=== PATIENT | female | born 1995 | race Caucasian/White ===

== ENCOUNTER 2018-03-05 08:59 | Emergency (ER) | payer OTHER ==
[2018-03-05 09:07] VITALS: BP 104/62
--- NOTE | 2018-03-05 09:22 | EDPHY ---
H & P Time Seen by Provider: 03/05/18 09:02 HPI/ROS: 22 yo F cut her finger while cutting a bagel at work today. 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 It bled alot but has slowed down since that time. No hx of bleeding problems, not on blood thinners. Review of systems As per HPI General no fever no chills no weakness HEENT no eye pain no eye discharge. No eye redness, no sore throat Respiratory no cough, no shortness of breath Cardiac no chest pain, no peripheral edema GI no abdominal pain, no diarrhea, no constipation, no nausea, no vomiting no flank pain, no hematuria, no dysuria Musculoskeletal no myalgias, no joint pain Heme no easy bruising, no easy bleeding Endo no polyuria, no polydipsia Skin no rashes, no pruritus Neuro no syncope, no dizziness, no headaches Past Medical/Surgical History: Non contributory Social History: Works at a preschool Smoking Status: Never smoked Physical Exam: 22-year-old female alert and oriented no acute distress nontoxic appearance Vital signs stable Atraumatic normocephalic Respiratory distress Lungs clear to auscultation Heart regular rate and rhythm hand left hand, left thumb with superficial laceration to distal tip approx 1 cm no gaping, bleeding controlled with pressure Constitutional: Initial Vital Signs Temperature (C) 36.3 C 03/05/18 09:05 Heart Rate 73 03/05/18 09:05 Respiratory Rate 18 03/05/18 09:05 Blood Pressure 104/62 03/05/18 09:05 O2 Sat (%) 99 03/05/18 09:05 O2 Delivery Mode Room Air Allergies/Adverse Reactions: No Known Allergies Allergy (Unverified 03/05/18 09:05) Home Medications: Medication Instructions Recorded Prozac 20 MG (*) 03/05/18 Medical Decision Making ED Course/Re-evaluation: pt seen and evaluated for left thumb injury. Impression Left thumb superficial laceration Plan Wound care Dressing Return as needed Differential Diagnosis: Differential diagnosis considered but not limited to: Superficial laceration, avulsion, abrasion, deep laceration Departure - Departure Disposition: Home, Routine, Self-Care Clinical Impression: Finger laceration Condition: Good Instructions: Laceration Without Closure (ED) Referrals: [facility] [Provider Group] - As per Instructions
== END 2018-03-05 09:25 | disposition home or self-care (01) ==
LOC: CED 08:59
DX: S61.012A Laceration without foreign body of left thumb without damage to nail, initial encounter (principal); W26.0XXA Contact with knife, initial encounter; Y92.218 Other school as the place of occurrence of the external cause; Y99.0 Civilian activity done for income or pay